=== PATIENT | female | born 1945 | race Caucasian/White ===

== ENCOUNTER 2016-12-11 14:50 | Emergency (ER) | payer MEDICARE, OTHER ==
[2016-12-11 15:01] VITALS: RESP 16; TEMP 99; O2SAT 99
[2016-12-11] MEDS ORDERED: TDAP Vaccine 0.5 mL Syr IM ONE (15:15)
[2016-12-11] MEDS ORDERED: Bacitracin 500 Units/gm Oint Foilpak UD TOP ONE (15:30)
[2016-12-11 15:37] VITALS: BMI 29.9
--- NOTE | 2016-12-11 16:01 | ED PDOC ---
Arrival/HPI - General Chief Complaint: Trauma Time Seen by Provider: 12/11/16 14:54 Historian: Patient, Family - History of Present Illness Narrative History of Present Illness (Text): 12/11/16 15:58 71 yo female, h/o HCL, Left Breast CA (s/p left mastectomy, last chemo 12 yrs ago) presents to the ED c/o facial pain s/p fall with facial trauma. States she recently had right shoulder surgery in October and so she guards her right shoulder a lot. She therefore missed her step while walking and fell in the kitchen hitting her face on the cabinet. She did not lose consciousness. She had a nose bleed that resolved prior to arrival. No loose teeth. No neck pain, back pain, new shoulder pain or abdominal pain. No other injuries to extremities or any other part of her body. She is not on blood thinners. PMD: Dr. Krueger Onc: Dr. Lancaster Past Medical History - Provider Review Nursing Documentation Reviewed: Yes - Cardiac Hx Cardiac Disorders: Yes - Pulmonary Hx Respiratory Disorders: No - Neurological Hx Neurological Disorder: Yes Hx Dizziness: Yes - HEENT Hx HEENT Disorder: No - Renal Hx Renal Disorder: No - Endocrine/Metabolic Hx Endocrine Disorders: No - Hematological/Oncological Hx Blood Disorders: Yes Hx Anemia: Yes Hx Cancer: Yes (left breast CA) Hx Chemotherapy: Yes (12 yrs ago) - Integumentary Hx Dermatological Disorder: No - Musculoskeletal/Rheumatological Hx Musculoskeletal Disorders: Yes Hx Arthritis: Yes (DJD) - Gastrointestinal Hx Gastrointestinal Disorders: Yes Hx Constipation: Yes Hx Gastroesophageal Reflux: Yes - Genitourinary/Gynecological Hx Genitourinary Disorders: No - Psychiatric Hx Psychophysiologic Disorder: No Hx Depression: No Hx Emotional Abuse: No Hx Physical Abuse: No Hx Substance Use: No - Surgical History Hx Cataract Extraction: Yes Hx Section: Yes Hx Mastectomy: Yes (left mastectomy) Hx Orthopedic Surgery: Yes - Anesthesia Hx Anesthesia: Yes Hx Anesthesia Reactions: No Hx Malignant Hyperthermia: No - Suicidal Assessment Feels Threatened In Home Enviroment: No Family/Social History Family/Social History: No Known Family HX Smoking Status: Never Smoked Hx Alcohol Use: No Hx Substance Use: No Hx Substance Use Treatment: No Allergies/Home Meds Allergies/Adverse Reactions: Allergies No Known Allergies Allergy (Verified 12/11/16 15:24) Home Medications: Home Meds Medication Instructions Recorded Confirmed Simvastatin 20 mg PO DAILY 04/18/12 12/11/16 Raloxifene HCl [Evista] 60 mg PO DAILY 12/12/14 10/20/16 Aspirin [Low Dose Aspirin EC] 81 mg PO DAILY 02/21/16 10/20/16 Ergocalciferol (Vitamin D2) 50,000 unit PO QWK 10/12/16 10/20/16 [Vitamin D2] Ferrous Sulfate, Dried [Iron] 160 mg PO DAILY 10/12/16 10/20/16 Meclizine HCl 1 tab PO BID 10/12/16 10/20/16 Meloxicam [Mobic] 15 mg PO DAILY 10/12/16 10/20/16 Review of Systems - Physician Review All systems were reviewed & negative as marked: Yes - Review of Systems Constitutional: Normal Eyes: Normal ENT: Normal Respiratory: Normal Cardiovascular: Normal Gastrointestinal: Normal Genitourinary Female: Normal Musculoskeletal: Normal Skin: Normal Neurological: Normal Endocrine: Normal Hemo/Lymphatic: Normal Psychiatric: Normal Physical Exam Vital Signs Reviewed: Yes Vital Signs Temp Pulse Resp BP Pulse Ox 12/11/16 15:01 99 F 75 16 156/44 H 99 Temperature: Afebrile Blood Pressure: Normal Pulse: Regular Respiratory Rate: Normal Appearance: Positive for: Well-Appearing, Non-Toxic, Comfortable Pain Distress: None Mental Status: Positive for: Alert and Oriented X 3 - Systems Exam Head: Present: Atraumatic, Normocephalic Pupils: Present: PERRL Extroacular Muscles: Present: EOMI Conjunctiva: Present: Normal Mouth: Present: Moist Mucous Membranes Pharnyx: Present: Normal Nose (External): Present: Abrasion, Contusion (nasal contusion with edema and tenderness) Nose (Internal): Present: No Active Bleeding, Moist, Epistaxis (recent epistaxis and theres' dried blood in nares). No: Septal Hematoma Neck: Present: Normal Range of Motion. No: MIDLINE TENDERNESS Respiratory/Chest: Present: Clear to Auscultation, Good Air Exchange. No: Respiratory Distress, Accessory Muscle Use Cardiovascular: Present: Regular Rate and Rhythm, Normal S1, S2. No: Murmurs Abdomen: Present: Normal Bowel Sounds. No: Tenderness, Distention, Peritoneal Signs Back: Present: Normal Inspection. No: Midline Tenderness Upper Extremity: Present: Normal Inspection. No: Cyanosis, Edema Lower Extremity: Present: Normal Inspection. No: Edema Neurological: Present: GCS=15, CN II-XII Intact, Speech Normal, Motor Func Grossly Intact, Normal Sensory Function, Normal Cerebellar Funct, Norm Deep Tendon Reflexes Skin: Present: Warm, Dry, Normal Color. No: Rashes Psychiatric: Present: Alert, Oriented x 3, Normal Insight, Normal Concentration Medical Decision Making ED Course and Treatment: 12/11/16 16:02 71 female s/p mechanical fall with facial trauma r/o nasal bone fracture, head injury r/o ich -- Tylenol PO -- Tetanus IM -- Bacitracin to abrasion -- CT Facial Bones/Head 12/11/16 17:[address]'s reviewed with no bleed or fracture. Will discharge home with close PMD f/u. Advised to return to the ED if symptoms worsen or any other concern. - RAD Interpretation Radiology Orders: 12/11/16 15:15 HEAD W/O CONTRAST [CT] Stat MAXILLOFACIAL W/O CONTRAST [CT] Stat Refinery Operator: Radiologist - Medication Orders Current Medication Orders: Discontinued Medications Acetaminophen (Tylenol 325mg Tab) 650 mg PO STAT STA Stop: 12/11/16 15:16 Last Admin: 12/11/16 15:29 Dose: 650 MG [facility] Pain/Vitals Document 12/11/16 15:29 HI (Rec: 12/11/16 15:29 [id number]) Pain Reassessment Is This A Pain ReAssessment? No Sleep Is patient sleeping during reassessment? No Presence of Pain Presence of Pain Yes Pain Scale Used Pain Scale Used Numeric Location Pain Location Body Site Face Bacitracin (Bacitracin) 1 ea TOP ONCE ONE Stop: 12/11/16 15:31 Last Admin: 12/11/16 15:30 Dose: 1 EA Tetanus/Reduced Diphtheria/Acell Pertussis (Boostrix Vaccine Inj) 0.5 ml IM .ONCE ONE Stop: 12/11/16 15:16 Last Admin: 12/11/16 15:29 Dose: 0.5 ML MAR Immunization Data Document 12/11/16 15:29 HI (Rec: 12/11/16 15:29 [id number]) Immunization Data Vaccine Lot Number [id number] Disposition/Present on Arrival - Present on Arrival Any Indicators Present on Arrival: No History of DVT/PE: No History of Uncontrolled Diabetes: No Urinary Catheter: No History of Decub. Ulcer: No History Surgical Site Infection Following: None - Disposition Have Diagnosis and Disposition been Completed?: Yes Diagnosis: Nasal abrasion, Nasal contusion, Fall Disposition: HOME/ ROUTINE Disposition Time: 17:25 Patient Plan: Discharge Patient Problems: Current Active Problems Problem Status Diagnosed Fall Acute Nasal abrasion Acute Nasal contusion Acute Condition: IMPROVED Additional Instructions: Ms Dillard, thank you for letting us take care of you today. Your provider was Dr. Haddad. You were treated for Nasal Congestion, Nasal Contusion. The emergency medical care you received today was directed at your acute symptoms. If you were prescribed any medication, please fill it and take as directed. It may take several days for your symptoms to resolve. Return to the Emergency Department if your symptoms worsen, do not improve, or if you have any other problems. Please contact your doctor or call one of the physicians/clinics you have been referred to that are listed on the Patient Visit Information form that is included in your discharge packet. Bring any paperwork you were given at discharge with you along with any medications you are taking to your follow up visit. Our treatment cannot replace ongoing medical care by a primary care provider (PCP) outside of the emergency department. Thank you for allowing the [facility] team to be part of your care today. If you had an X-Ray or CT scan: A Radiologist will review the ED reading if any change in treatment is needed we will contact you. If you had a blood, urine, or wound culture: It will take several days for the results, if any change in treatment is needed we will contact you. If you had an STI test: It will take 48 hours for the results. Please call after 1 week if you have not heard back. Prescriptions: Ibuprofen [Motrin] 600 mg PO Q6 PRN #30 tab PRN Reason: Pain, Moderate (4-7) Referrals: Suma Du MD [Primary Care Provider] - Follow up with primary Forms: WORK NOTE
--- NOTE | 2016-12-11 16:22 | CT ---
PROCEDURE: CT HEAD WITHOUT CONTRAST. HISTORY: head injury r/o ich COMPARISON: 02/21/2016. TECHNIQUE: Axial computed tomography images were obtained through the head/brain without intravenous contrast. Radiation dose: Total exam DLP = 725.84 mGy-cm. FINDINGS: HEMORRHAGE: No intracranial hemorrhage. BRAIN: There are mild chronic microangiopathic changes. There is no mass, mass effect or abnormal extra-axial fluid collection. There is normal density in the larger dural venous sinuses. VENTRICLES: There is mild age-related global parenchymal volume loss and proportionate enlargement of the ventricles and cortical sulci. CALVARIUM: There is no calvarial fracture or extracranial soft tissue swelling. PARANASAL SINUSES: Predominantly clear. MASTOID AIR CELLS: Predominantly clear. OTHER FINDINGS: None. IMPRESSION: No acute intracranial abnormality. Mild chronic microangiopathic changes and mild age-related global parenchymal volume loss.
--- NOTE | 2016-12-11 17:20 | CT ---
PROCEDURE: CT MAXILLOFACIAL BONES WITHOUT CONTRAST HISTORY: facial injury r/o fracture COMPARISON: None TECHNIQUE: Contiguous axial CT images of the maxillofacial bones were obtained. Coronal and sagittal reformats were generated. Radiation dose: Total exam DLP = 834.70 mGy-cm. FINDINGS: NASAL BONES: The nasal bones are intact. ORBITS: There is no acute fracture. PARANASAL SINUSES/ MASTOIDS: Predominantly clear. MAXILLA: No acute maxillofacial fracture. . MANDIBLE/ TEMPOROMANDIBULAR JOINTS: No acute fracture or dislocation. SKULL BASE: Unremarkable. TEMPORAL BONES: Middle ears and mastoid grossly unremarkable. OTHER FINDINGS: None. IMPRESSION: No acute nasal bone, orbital or maxillofacial fracture.
[2016-12-11 17:41] VITALS: BP 152/30; PULSE 72
== END 2016-12-11 17:40 | disposition home or self-care (01) ==
LOC: ED 14:50
DX: S00.33XA Contusion of nose, initial encounter (principal); W01.198A Fall on same level from slipping, tripping and stumbling with subsequent striking against other object, initial encounter; Y93.89 Activity, other specified; Y92.000 Kitchen of unspecified non-institutional (private) residence as the place of occurrence of the external cause; Z23 Encounter for immunization

== ENCOUNTER 2017-01-03 12:23 | Emergency (ER) | payer MEDICARE, OTHER ==
[2017-01-03 12:24] VITALS: BMI 29.9
[2017-01-03 12:47] VITALS: RESP 16; TEMP 98
--- NOTE | 2017-01-03 13:13 | ED PDOC ---
Arrival/HPI - General Historian: Patient - History of Present Illness Time/Duration: < week Symptom Onset: Sudden - General Chief Complaint: Back Pain Time Seen by Provider: 01/03/17 12:33 - History of Present Illness Narrative History of Present Illness (Text): 01/03/17 13:12 71 year old female with past medical history of Left Breast CA s/p left mastectomy, hyperlipidemia, GERD presents [facility] ED complaining of left sided lower back pain. Patient reports the pain started 4 days ago suddenly, she did not have any trauma or injury to the area. Patient did not seek for medical attention at the time hoping the pain will resolve by itself. The pain became worse this morning when she woke up in the morning where she cannot stand straight due to pain. Patient reports she had similar episode of back pain 2 years ago, and it resolved after getting 1 shot of toradol. Patient denies having lower extremity weakness, loss of sensation, urinary or fecal incontinence. She further denies headache, fever, chills, shortness of breath chest pain, abdominal pain, nausea, vomiting, or diarrhea. (Humza Aiken) Past Medical History - Provider Review Nursing Documentation Reviewed: Yes - Cardiac Hx Cardiac Disorders: Yes - Pulmonary Hx Respiratory Disorders: No - Neurological Hx Neurological Disorder: Yes Hx Dizziness: Yes - HEENT Hx HEENT Disorder: No - Renal Hx Renal Disorder: No - Endocrine/Metabolic Hx Endocrine Disorders: No - Hematological/Oncological Hx Blood Disorders: Yes Hx Anemia: Yes Hx Cancer: Yes (left breast CA) Hx Chemotherapy: Yes (12 yrs ago) - Integumentary Hx Dermatological Disorder: No - Musculoskeletal/Rheumatological Hx Musculoskeletal Disorders: Yes Hx Arthritis: Yes (DJD) - Gastrointestinal Hx Gastrointestinal Disorders: Yes Hx Constipation: Yes Hx Gastroesophageal Reflux: Yes - Genitourinary/Gynecological Hx Genitourinary Disorders: No - Psychiatric Hx Psychophysiologic Disorder: No Hx Depression: No Hx Emotional Abuse: No Hx Physical Abuse: No Hx Substance Use: No - Surgical History Hx Cataract Extraction: Yes Hx Section: Yes Hx Mastectomy: Yes (left mastectomy) Hx Orthopedic Surgery: Yes - Anesthesia Hx Anesthesia: Yes Hx Anesthesia Reactions: No Hx Malignant Hyperthermia: No - Suicidal Assessment Feels Threatened In Home Enviroment: No Family/Social History - Physician Review Nursing Documentation Reviewed: Yes Family/Social History: No Known Family HX Smoking Status: Never Smoked Hx Alcohol Use: No Hx Substance Use: No Hx Substance Use Treatment: No Allergies/Home Meds Allergies/Adverse Reactions: Allergies No Known Allergies Allergy (Verified 01/03/17 12:43) Home Medications: Home Meds Medication Instructions Recorded Confirmed Simvastatin 20 mg PO DAILY 04/18/12 01/03/17 Raloxifene HCl [Evista] 60 mg PO DAILY 12/12/14 01/03/17 Aspirin [Low Dose Aspirin EC] 81 mg PO DAILY 02/21/16 01/03/17 Ergocalciferol (Vitamin D2) 50,000 unit PO QWK 10/12/16 01/03/17 [Vitamin D2] Ferrous Sulfate, Dried [Iron] 160 mg PO DAILY 10/12/16 01/03/17 Meclizine HCl 1 tab PO BID PRN 10/12/16 01/03/17 Calcium Carbonate [Oscal] 0 mg PO DAILY 01/03/17 01/03/17 Review of Systems - Physician Review All systems were reviewed & negative as marked: Yes - Review of Systems Constitutional: Normal. absent: Weight Change, Fevers Eyes: Normal. absent: Vision Changes, Photophobia ENT: Normal Respiratory: Normal. absent: SOB, Cough, Wheezing Cardiovascular: Normal. absent: Chest Pain, Syncope Gastrointestinal: Normal. absent: Diarrhea, Nausea, Vomiting Musculoskeletal: Back Pain. absent: Joint Swelling Skin: Normal Neurological: Normal. absent: Headache, Dizziness Endocrine: Normal Hemo/Lymphatic: Normal Psychiatric: Normal Physical Exam Vital Signs Reviewed: Yes Temperature: Afebrile Blood Pressure: Hypotensive Pulse: Regular Respiratory Rate: Normal Appearance: Positive for: Well-Appearing, Non-Toxic, Comfortable Pain Distress: Mild Mental Status: Positive for: Alert and Oriented X 3 - Systems Exam Head: Present: Atraumatic, Normocephalic Pupils: Present: PERRL Extroacular Muscles: Present: EOMI Conjunctiva: Present: Normal Mouth: Present: Moist Mucous Membranes Respiratory/Chest: Present: Clear to Auscultation, Good Air Exchange. No: Respiratory Distress, Accessory Muscle Use Cardiovascular: Present: Regular Rate and Rhythm, Normal S1, S2. No: Murmurs Abdomen: Present: Normal Bowel Sounds. No: Tenderness, Distention, Peritoneal Signs Back: Present: Normal Inspection, Midline Tenderness (lumbar spine midline tenderness) Upper Extremity: Present: Normal Inspection. No: Cyanosis, Edema Lower Extremity: Present: Normal Inspection. No: Edema Neurological: Present: GCS=15, CN II-XII Intact, Speech Normal, Motor Func Grossly Intact, Normal Sensory Function Skin: Present: Warm, Dry, Normal Color. No: Rashes Psychiatric: Present: Alert, Oriented x 3, Normal Insight, Normal Concentration Vital Signs Temp Pulse Resp BP Pulse Ox 01/03/17 12:43 98 F 85 16 121/54 L 97 Medical Decision Making ED Course and Treatment: 01/03/17 13:35 -Toradol IM -CT lumbar DDx: muscle strain, osteoarthritis, spinal stenosis, breast cancer mets 71 year old female with pmhx of breast cancer s/p mastectomy presents with left sided lower back pain of 4 days. Patient will received toradol IM for pain and CT lumbar to r/o breast CA metastasis. 01/03/17 14:[address] lumbar due to discomfort. Patient was informed on the importance of the study and agree to undergo CT scan. Lower back pain improved with toradol. 01/03/17 15:[address] scan results. Patient will be given naproxen prn for pain. Will follow up with PMD. (Huzma Aiken) Patient seen and examined with resident Came up with treatment and disposition plan with resident A 71 year old female, with a past medical history of left breast cancer, presents with left lower back pain. Notes and results from previous visits were reviewed. Patient seen in ED on and treated for facial trauma after a mechanical fall. On exam, patient has increased hypertonicity appreciated in the lower lumbar region, pain quality reproduced with palpation. No midline tenderness. FROM of pt's cervical, thoracic, lumbar, and sacral regions appreciated, active/passive without any difficulty. Lower extremities with full neurological and vascular intact. Steady gait. pt received Toradol reported symptomatic relief. Ambulatory in the emergency department. Based on hx and physical, no suspicion for renal involvement, cord impingement or epidural/spinal abscess stable for dc home. instructed not to drive/operate machinery/drink/do drugs with medication Pt verbalized understands to return to the ER right away for new or worsening symptoms or for inability to f/u with PMD or specialist as instructed. Patient verbalized full agreement with and understanding of discharge instructions. States that he agrees with the plan and disposition. Verbalized and repeated discharge instructions and plan. I have given the patient opportunity to ask any additional questions. (Eliazar Elizonod) - RAD Interpretation Narrative RAD Interpretations (Text): 01/03/17 14:55 CT lumbar w/o contrast Impression: Moderate facet athropathy at L4-5. Disc degeneration and facet arthropathy with bilateral foaminal stenosis at L5- S1 (Humza Aiken) Radiology Orders: 01/03/17 14:12 LUMBAR SPINE W/O CONTRAST [CT] Stat - Medication Orders Current Medication Orders: Discontinued Medications Ketorolac Tromethamine (Toradol) 60 mg IM STAT STA Stop: 01/03/17 13:10 Last Admin: 01/03/17 13:30 Dose: 60 MG IM Administration Charges Document 01/03/17 13:30 SZA (Rec: 01/03/17 13:59 [id number]) Injection Site MAR Injection Site Right Gluteus Medius Charges for Administration # of IM Administrations 1 Disposition/Present on Arrival - Present on Arrival Any Indicators Present on Arrival: No History of DVT/PE: No History of Uncontrolled Diabetes: No Urinary Catheter: No History of Decub. Ulcer: No History Surgical Site Infection Following: None - Disposition Have Diagnosis and Disposition been Completed?: Yes Disposition Time: 14:58 Patient Plan: Discharge - Disposition Diagnosis: Disc degeneration, lumbar, Facet arthropathy, lumbar Disposition: HOME/ ROUTINE Patient Problems: Current Active Problems Problem Status Diagnosed Disc degeneration, lumbar Acute Facet arthropathy, lumbar Acute Condition: STABLE Discharge Instructions (ExitCare): Degenerative Disc Disease (ED) Additional Instructions: PLEASE RETURN TO THE EMERGENCY DEPARTMENT FOR NEW OR WORSENING SYMPTOMS. RETURN RIGHT AWAY IF YOU CANNOT FOLLOW UP WITH YOUR PRIMARY CARE DOCTOR, CLINIC, OR SPECIALIST IN 1-2 DAYS. Prescriptions: Ibuprofen [Motrin] 600 mg PO Q6 #20 tab Referrals: Suma Du MD [Primary Care Provider] - Follow up with primary
--- NOTE | 2017-01-03 14:49 | CT ---
PROCEDURE: CT Lumbar Spine without contrast HISTORY: back pain COMPARISON: None. TECHNIQUE: Axial computed tomography images were obtained of the lumbar spine without the use of intravenous contrast. Coronal and sagittal reformatted images were created and reviewed. Radiation dose: Total exam DLP = 785 mGy-cm. This CT exam was performed using one or more of the following dose reduction techniques: Automated exposure control, adjustment of the mA and/or kV according to patient size, and/or use of iterative reconstruction technique. FINDINGS: VERTEBRAE: Unremarkable. No fracture. Normal alignment. DISCS/SPINAL CANAL/NEURAL FORAMINA: L1-2: Unremarkable. L2-3: Unremarkable. L3-4: Unremarkable. L4-5: There is moderate facet arthropathy without stenosis L5-S1: There is facet arthropathy and marginal osteophytes which produce bilateral foraminal stenosis left greater than right PARASPINAL SOFT TISSUES: Unremarkable. OTHER FINDINGS: None. IMPRESSION: Moderate facet arthropathy at L4-5. Disc degeneration and facet arthropathy with bilateral foraminal stenosis at L5-S1
[2017-01-03 15:32] VITALS: BP 119/77; PULSE 76; O2SAT 98
== END 2017-01-03 15:34 | disposition home or self-care (01) ==
LOC: ED 12:23
DX: M46.96 Unspecified inflammatory spondylopathy, lumbar region (principal); M51.36 Other intervertebral disc degeneration, lumbar region; Z85.3 Personal history of malignant neoplasm of breast
CPT/HCPCS: 72131; 96372; 99283; J1885

== ENCOUNTER 2017-04-18 10:49 | Emergency (ER) | payer MEDICARE, OTHER ==
[2017-04-18] MEDS ORDERED: Lidocaine 1% Inj (20ml) ONE (11:27)
[2017-04-18 11:31] VITALS: BP 124/81; PULSE 77; RESP 18; TEMP 98.3; O2SAT 97; BMI 30.7
--- NOTE | 2017-04-18 11:46 | ED PDOC ---
Arrival/HPI - General Chief Complaint: Abnormal Skin Integrity Time Seen by Provider: 04/18/17 11:20 Historian: Patient - History of Present Illness Narrative History of Present Illness (Text): 04/18/17 11:21 Otilio Dillard is a 71 year old female, whose past medical history includes Left Breast CA s/p left mastectomy, hyperlipidemia, and GERD, presents to the Emergency department complaining of a cyst on her upper left back that began one week ago. Patient notes she was taking antibiotic Cephalex 500mg, however there were no major improvements. Patient denies any chest pain, shortness of breath, headache, fever, chills, cough, nausea, vomiting, diarrhea, abdominal pain, dizziness, lightheadedness, or other complaints. PMD: [place] Time/Duration: 1 week Symptom Onset: Sudden Symptom Course: Unchanged Modifying Factors (Text): None Associated Symptoms (Text): None Past Medical History - Provider Review Nursing Documentation Reviewed: Yes - Infectious Disease Hx of Infectious Diseases: None - Cardiac Hx Cardiac Disorders: Yes - Pulmonary Hx Respiratory Disorders: No - Neurological Hx Neurological Disorder: Yes Hx Dizziness: Yes - HEENT Hx HEENT Disorder: No - Renal Hx Renal Disorder: No - Endocrine/Metabolic Hx Endocrine Disorders: No - Hematological/Oncological Hx Blood Disorders: Yes Hx Anemia: Yes Hx Cancer: Yes (left breast CA) Hx Chemotherapy: Yes (12 yrs ago) - Integumentary Hx Dermatological Disorder: No - Musculoskeletal/Rheumatological Hx Musculoskeletal Disorders: Yes Hx Arthritis: Yes (DJD) - Gastrointestinal Hx Gastrointestinal Disorders: Yes Hx Constipation: Yes Hx Gastroesophageal Reflux: Yes - Genitourinary/Gynecological Hx Genitourinary Disorders: No - Psychiatric Hx Psychophysiologic Disorder: No Hx Depression: No Hx Emotional Abuse: No Hx Physical Abuse: No Hx Substance Use: No - Surgical History Hx Cataract Extraction: Yes Hx Section: Yes Hx Mastectomy: Yes (left mastectomy) Hx Orthopedic Surgery: Yes - Anesthesia Hx Anesthesia: Yes Hx Anesthesia Reactions: No Hx Malignant Hyperthermia: No - Suicidal Assessment Feels Threatened In Home Enviroment: No Family/Social History - Physician Review Nursing Documentation Reviewed: Yes Family/Social History: Unknown Family HX Smoking Status: Never Smoked Hx Alcohol Use: No Hx Substance Use: No Hx Substance Use Treatment: No Allergies/Home Meds Allergies/Adverse Reactions: Allergies No Known Allergies Allergy (Verified 01/03/17 12:43) Home Medications: Home Meds Medication Instructions Recorded Confirmed Simvastatin 20 mg PO DAILY 04/18/12 04/18/17 Aspirin [Low Dose Aspirin EC] 81 mg PO DAILY 02/21/16 04/18/17 Ergocalciferol (Vitamin D2) 50,000 unit PO QWK 10/12/16 04/18/17 [Vitamin D2] Ferrous Sulfate, Dried [Iron] 160 mg PO DAILY 10/12/16 04/18/17 Meclizine HCl 1 tab PO BID PRN 10/12/16 04/18/17 Calcium Carbonate [Oscal] 0 mg PO DAILY 01/03/17 04/18/17 Review of Systems - Physician Review All systems were reviewed & negative as marked: Yes - Review of Systems Constitutional: absent: Fevers Respiratory: absent: SOB Gastrointestinal: absent: Vomiting Skin: Other (cyst on upper left back) Neurological: absent: Headache Physical Exam Vital Signs Reviewed: Yes Vital Signs Temp Pulse Resp BP Pulse Ox 04/18/17 11:09 98.3 F 77 18 124/81 97 Temperature: Afebrile Blood Pressure: Normal Pulse: Regular Respiratory Rate: Normal Appearance: Positive for: Well-Appearing, Non-Toxic, Comfortable Pain Distress: None Mental Status: Positive for: Alert and Oriented X 3 - Systems Exam Head: Present: Atraumatic, Normocephalic Pupils: Present: PERRL Extroacular Muscles: Present: EOMI Conjunctiva: Present: Normal Mouth: Present: Moist Mucous Membranes Neck: Present: Normal Range of Motion Respiratory/Chest: Present: Clear to Auscultation, Good Air Exchange. No: Respiratory Distress, Accessory Muscle Use Cardiovascular: Present: Regular Rate and Rhythm, Normal S1, S2. No: Murmurs Abdomen: Present: Normal Bowel Sounds. No: Tenderness, Distention, Peritoneal Signs Back: Present: Normal Inspection Upper Extremity: Present: Normal Inspection. No: Cyanosis, Edema Lower Extremity: Present: Normal Inspection. No: Edema Neurological: Present: GCS=15, CN II-XII Intact, Speech Normal Skin: Present: Warm, Dry, Normal Color, Abscess (1 cm abscess fluctuant tender) . No: Rashes Psychiatric: Present: Alert, Oriented x 3, Normal Insight, Normal Concentration Medical Decision Making ED Course and Treatment: 04/18/17 11:21 Impression: 71 year old female with cyst on her left upper back. Differential Diagnosis included but are not limited to: abscess Plan: -- Incision and Drainage -- Reassess and disposition Progress Notes: 04/18/2017 11:25 Patient feels better after incision and drainage procedure and is in no acute distress. Will be discharged home with f/u in the ED in 2-3days. - Medication Orders Current Medication Orders: Discontinued Medications Lidocaine HCl (Lidocaine 1% (20ml)) Confirm Administered Dose 20 ml .ROUTE .K- MED ONE Stop: 04/18/17 11:28 - Procedure PROCEDURE NOTE (Text): 04/18/17 11:25 Procedure: Incision & Drainage Performed by the emergency provider Indication: Abscess Location: Upper left back region Preparation: The area was prepped and draped in the usual sterile fashion and was cleansed. Procedure: The most fluctuant portion of the abscess was incised with a #11 scalpel. Approximately 0.5cm was obtained. The abscess was packed 1.0cm. A dressing was applied by the RN. Post-Procedure: On exam the abscess is notably less fluctuant. The patient tolerated the procedure well, and there were no complications. - Scribe Statement The provider has reviewed the documentation as recorded by the Scribe 04/18/2017 Shavonne Dawn Provider Scribe Attestation: All medical record entries made by the Scribe were at my direction and personally dictated by me. I have reviewed the chart and agree that the record accurately reflects my personal performance of the history, physical exam, medical decision making, and the department course for this patient. I have also personally directed, reviewed, and agree with the discharge instructions and disposition. Disposition/Present on Arrival - Present on Arrival Any Indicators Present on Arrival: No History of DVT/PE: No History of Uncontrolled Diabetes: No Urinary Catheter: No History of Decub. Ulcer: No History Surgical Site Infection Following: None - Disposition Have Diagnosis and Disposition been Completed?: Yes Diagnosis: Abscess Disposition: HOME/ ROUTINE Disposition Time: 14:16 Patient Plan: Discharge Condition: IMPROVED Discharge Instructions (ExitCare): Abscess (ED) Additional Instructions: Ms Dillard, thank you for letting us take care of you today. Your provider was Dr. Haddad. You were treated for Abscess. The emergency medical care you received today was directed at your acute symptoms. If you were prescribed any medication, please fill it and take as directed. It may take several days for your symptoms to resolve. Return to the Emergency Department if your symptoms worsen, do not improve, or if you have any other problems. Return to the ED in 2-3days for wound check of I&D. Please contact your doctor or call one of the physicians/clinics you have been referred to that are listed on the Patient Visit Information form that is included in your discharge packet. Bring any paperwork you were given at discharge with you along with any medications you are taking to your follow up visit. Our treatment cannot replace ongoing medical care by a primary care provider (PCP) outside of the emergency department. Thank you for allowing the [facility] team to be part of your care today. If you had an X-Ray or CT scan: A Radiologist will review the ED reading if any change in treatment is needed we will contact you. If you had a blood, urine, or wound culture: It will take several days for the results, if any change in treatment is needed we will contact you. If you had an STI test: It will take 48 hours for the results. Please call after 1 week if you have not heard back. Prescriptions: Cephalexin [cephalexin] 500 mg PO TID #15 cap Referrals: Suma Du MD [Primary Care Provider] - Follow up with primary Forms: [employer] ([place]ian)
== END 2017-04-18 11:50 | disposition home or self-care (01) ==
LOC: ED 10:49
DX: L02.212 Cutaneous abscess of back [any part, except buttock and flank] (principal)

== ENCOUNTER 2017-04-21 16:05 | Emergency (ER) | payer MEDICARE, OTHER ==
[2017-04-21 16:06] VITALS: BMI 29.9
[2017-04-21 16:29] VITALS: BP 114/78; PULSE 65; RESP 16; TEMP 98.5; O2SAT 97
--- NOTE | 2017-04-21 16:59 | ED PDOC ---
Arrival/HPI - General Chief Complaint: Medical Clearance Time Seen by Provider: 04/21/17 16:39 Historian: Patient - History of Present Illness Narrative History of Present Illness (Text): 04/21/17 17:11 71 yo F w/ past medical history includes Left Breast CA s/p left mastectomy, hyperlipidemia, and GERD, presents for wound check s/p I&D to the L upper back. Patient denies any chest pain, shortness of breath, fever, chills, cough, or other complaints. PMD: Yrn Past Medical History - Provider Review Nursing Documentation Reviewed: Yes - Infectious Disease Hx of Infectious Diseases: None - Cardiac Hx Cardiac Disorders: Yes - Pulmonary Hx Respiratory Disorders: No - Neurological Hx Neurological Disorder: Yes Hx Dizziness: Yes - HEENT Hx HEENT Disorder: No - Renal Hx Renal Disorder: No - Endocrine/Metabolic Hx Endocrine Disorders: No - Hematological/Oncological Hx Blood Disorders: Yes Hx Anemia: Yes Hx Cancer: Yes (left breast CA) Hx Chemotherapy: Yes (12 yrs ago) - Integumentary Hx Dermatological Disorder: No - Musculoskeletal/Rheumatological Hx Musculoskeletal Disorders: Yes Hx Arthritis: Yes (DJD) - Gastrointestinal Hx Gastrointestinal Disorders: Yes Hx Constipation: Yes Hx Gastroesophageal Reflux: Yes - Genitourinary/Gynecological Hx Genitourinary Disorders: No - Psychiatric Hx Psychophysiologic Disorder: No Hx Depression: No Hx Emotional Abuse: No Hx Physical Abuse: No Hx Substance Use: No - Surgical History Hx Cataract Extraction: Yes Hx Section: Yes Hx Mastectomy: Yes (left mastectomy) Hx Orthopedic Surgery: Yes - Anesthesia Hx Anesthesia: Yes Hx Anesthesia Reactions: No Hx Malignant Hyperthermia: No - Suicidal Assessment Feels Threatened In Home Enviroment: No Family/Social History - Physician Review Nursing Documentation Reviewed: Yes Family/Social History: No Known Family HX Smoking Status: Never Smoked Hx Alcohol Use: No Hx Substance Use: No Hx Substance Use Treatment: No Allergies/Home Meds Allergies/Adverse Reactions: Allergies No Known Allergies Allergy (Verified 01/03/17 12:43) Home Medications: Home Meds Medication Instructions Recorded Confirmed Simvastatin 20 mg PO DAILY 04/18/12 04/21/17 Aspirin [Low Dose Aspirin EC] 81 mg PO DAILY 02/21/16 04/21/17 Ergocalciferol (Vitamin D2) 50,000 unit PO QWK 10/12/16 04/21/17 [Vitamin D2] Ferrous Sulfate, Dried [Iron] 160 mg PO DAILY 10/12/16 04/21/17 Meclizine HCl 1 tab PO BID PRN 10/12/16 04/21/17 Calcium Carbonate [Oscal] 0 mg PO DAILY 01/03/17 04/21/17 Review of Systems - Review of Systems Constitutional: Normal. absent: Fatigue, Weight Change, Fevers Musculoskeletal: Normal. absent: Arthralgias, Back Pain, Neck Pain Skin: Normal, Abscess. absent: Rash, Pruritis, Skin Lesions Physical Exam Vital Signs Reviewed: Yes Vital Signs Temp Pulse Resp BP Pulse Ox 04/21/17 16:29 98.5 F 65 16 114/78 97 Temperature: Afebrile Blood Pressure: Normal Pulse: Regular Respiratory Rate: Normal Appearance: Positive for: Well-Appearing, Non-Toxic, Comfortable Pain Distress: None Mental Status: Positive for: Alert and Oriented X 3 - Systems Exam Back: Present: Normal Inspection. No: CVA Tenderness, Midline Tenderness, Paraspinal Tenderness Upper Extremity: Present: Normal Inspection, Normal ROM. No: Edema Lower Extremity: Present: Normal Inspection, Normal ROM. No: Edema Neurological: Present: GCS=15, CN II-XII Intact, Speech Normal, Motor Func Grossly Intact, Normal Sensory Function Skin: Present: Warm, Dry, Normal Color, Abscess (healing packed abscess to the L upper back with no surrounding erythem and edema, no d/c). No: Rashes Medical Decision Making ED Course and Treatment: 04/21/17 16:56 71 yo F presents for wound check s/p I&D to the L upper back. Wound packing removed easily by PA. Wound cleaned with NS, dressing applied. Patient advised to follow up with PMD in 1-2 days without fail. Instructed to clean the wound daily with regular soap, and apply clean dressing as well. Return to the emergency room at any time for any new or worsening symptoms. Patient states she fully agrees with and understands discharge instructions. States that she agrees with the plan and disposition. Verbalized and repeated discharge instructions and plan. I have given the patient opportunity to ask any additional questions. - PA / ALTITUDE CHAMBER TECHNICIAN / Resident Statement MD/DO has reviewed & agrees with the documentation as recorded. Disposition/Present on Arrival - Present on Arrival Any Indicators Present on Arrival: No History of DVT/PE: No History of Uncontrolled Diabetes: No Urinary Catheter: No History of Decub. Ulcer: No History Surgical Site Infection Following: None - Disposition Have Diagnosis and Disposition been Completed?: Yes Diagnosis: Wound check, abscess Disposition: HOME/ ROUTINE Disposition Time: 16:59 Patient Plan: Discharge Condition: STABLE Discharge Instructions (ExitCare): Acute Wound Care (ED) Print Language: CITIZEN OF [place] Additional Instructions: Thank you for letting us take care of you today. You were treated for wound check for abscess. The emergency medical care you received today was directed at your acute symptoms. Return to the Emergency Department if your symptoms worsen, do not improve, or if you have any other problems. Please contact your doctor in 2 days for re-evaluation and follow up. Bring any paperwork you were given at discharge with you along with any medications you are taking to your follow up visit. Our treatment cannot replace ongoing medical care by a primary care provider (PCP) outside of the emergency department. Thank you for allowing the [facility] team to be part of your care today. Forms: [id number] (Per[place]ian)
== END 2017-04-21 17:16 | disposition home or self-care (01) ==
LOC: ED 16:05
DX: Z51.89 Encounter for other specified aftercare (principal)

== ENCOUNTER 2018-10-25 11:14 | Outpatient (CLI) | payer MEDICARE, OTHER | END 2018-10-25 11:15 | disposition home or self-care (01) | LOC: RAD 11:14 ==

== ENCOUNTER 2018-11-29 13:27 | Outpatient (CLI) | payer MEDICARE, OTHER | END 2018-11-29 13:28 | disposition home or self-care (01) | LOC: RAD 13:27 ==

== ENCOUNTER 2019-01-03 12:50 | Outpatient (CLI) | payer MEDICARE, OTHER | END 2019-01-03 12:51 | disposition home or self-care (01) | LOC: LAB 12:50 ==

== ENCOUNTER 2019-01-09 11:09 | Outpatient (CLI) | payer MEDICARE, OTHER | END 2019-01-09 11:10 | disposition home or self-care (01) | LOC: LAB 11:09 ==

== ENCOUNTER 2019-01-16 11:10 | Outpatient (CLI) | payer MEDICARE, OTHER | END 2019-01-16 11:11 | disposition home or self-care (01) | LOC: LAB 11:10 ==